=== PATIENT | male | born 1960 | race Two or more races ===

== ENCOUNTER 2025-08-13 06:42 | Emergency (ER) | payer OTHER ==
[~2025-08-13] VITALS: Ht 162.6 cm; Wt 69.9 kg
[2025-08-13] MEDS ORDERED: ADULT LOW DOSE81 M1 PO (07:21)
[2025-08-13] MEDS ORDERED: COZAAR100 MG PO (07:21)
[2025-08-13] MEDS ORDERED: ATORVASTATIN CA80 MG PO (07:21)
[2025-08-13] MEDS ORDERED: CARVEDILOL ER40 MG (07:21)
[2025-08-13 07:24] VITALS: BP 190/94; O2SAT 99
[2025-08-13] MEDS ORDERED: DEXAMETHASONE SODIUM PHOSPHATE 4 MG/ML VIAL IM STA (08:18)
[2025-08-13] MEDS ORDERED: KETOROLAC TROMETHAMINE 30 MG VIAL IM STA (08:18)
[2025-08-13] MEDS ORDERED: NAPROXEN500 MG PO (11:52)
== END 2025-08-13 12:12 | disposition home or self-care (01) ==
LOC: ER 06:43
DX: S60.416A Abrasion of right little finger, initial encounter (principal); W18.39XA Other fall on same level, initial encounter; Y93.89 Activity, other specified; Y92.480 Sidewalk as the place of occurrence of the external cause; I10 Essential (primary) hypertension; M25.562 Pain in left knee